=== PATIENT | male | born 1970 | race African-American/Black ===

== ENCOUNTER 2016-11-30 18:56 | Emergency (ER) | payer BC ==
[~2016-11-30] VITALS: Ht 185.4 cm; Wt 95.0 kg
[~2016-11-30 18:56] MED LIST: AUGM875T PO; BACT800T5 PO; NAPR-576 PO
[2016-11-30 18:57] VITALS: BP 147/98; PULSE 102; RESP 20; TEMP 98.2; O2SAT 99
== END 2016-11-30 21:54 | disposition left against medical advice (07) ==
LOC: NED 18:56
DX: K13.79 Other lesions of oral mucosa (principal); Z53.21 Procedure and treatment not carried out due to patient leaving prior to being seen by health care provider
CPT/HCPCS: 99281